=== PATIENT | male | born 1960 | race Caucasian/White ===

== ENCOUNTER 2019-09-02 11:07 | Emergency (ER) | payer BC ==
[2019-09-02 11:18] VITALS: BP 121/98; PULSE 103
[2019-09-02] MEDS ORDERED: Diphtheria,Pertussis(Acell),Tetanus Vaccine 0.5 ML Syringe IM ONE (11:36)
[2019-09-02] MEDS ORDERED: Bacitracin Oint 1 GM U/D Packet TOP ONE (11:36)
--- NOTE | 2019-09-02 11:40 | EDM.PDOC ---
ED HPI GENERAL MEDICAL PROBLEM - General Chief Complaint: Laceration Stated Complaint: LACERATION ON LEG Time Seen by Provider: 09/02/19 11:19 Source of Information: Reports: Patient History Limitations: Reports: No Limitations - History of Present Illness INITIAL COMMENTS - FREE TEXT/NARRATIVE: HISTORY AND PHYSICAL: History of present illness: Patient is a 59-year-old male who presents to the emergency room with complaints of a laceration to his right medial thigh. 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 He denies any other extremity involvement. He offers no systemic complaints. States "if my went of november I probably would have glued shut". Review of systems: As per history of present illness and below otherwise all systems reviewed and negative. Past medical history: As per history of present illness and as reviewed below otherwise noncontributory. Surgical history: As per history of present illness and as reviewed below otherwise noncontributory. Social history: See social history for further information Family history: As per history of present illness and as reviewed below otherwise noncontributory. Physical exam: General: Well-developed and well-nourished 59-year-old male. Alert and oriented. Nontoxic-appearing and in no acute distress. HEENT: Atraumatic, normocephalic, pupils equal and reactive bilaterally, negative for conjunctival pallor or scleral icterus, mucous membranes moist, TMs normal bilaterally, throat clear, neck supple, nontender, trachea midline. No drooling or trismus noted. No meningeal signs. No hot potato voice noted. Lungs: Clear to auscultation, breath sounds equal bilaterally, chest nontender. Heart: S1S2, regular rate and rhythm without overt murmur Abdomen: Soft, nondistended, nontender. Negative for masses or hepatosplenomegaly. Negative for costovertebral tenderness. Skin: 3.5cm laceration to mid thigh of right. Otherwise skin is intact, warm, dry. No lesions or rashes noted. Extremities: Atraumatic, moves all extremities per self without difficulty or deficits, negative for cords or calf pain. Neurovascular unremarkable. Neuro: Awake, alert, oriented. Cranial nerves II through XII unremarkable. Cerebellum unremarkable. Motor and sensory unremarkable throughout. Exam nonfocal. Notes: Chlorhexidine was used to wash the area. 1% lidocaine was used to anesthetize the area. Usual and customary procedures were followed for suture placement. 4 -0 nylon, #5 interrupted sutures were placed. Bacitracin nonstick dressing applied. Supportive care measures were reviewed and discussed. Voices understanding and is agreeable to plan of care. Denies any further questions or concerns at this time. Diagnostics: None Therapeutics: Lidocaine, Tdap, Bacitracin Prescription: None Impression: Laceration Plan: 1. Keep the area clean and dry. Continue to monitor for signs of infection. Sutures to be removed in 7-10 days. 2. Tylenol and/or ibuprofen as needed for pain management. 3. Please follow-up with your primary care provider in the next 1-2 days. Return to the ED as needed and as discussed. Definitive disposition and diagnosis as appropriate pending reevaluation and review of above. - Related Data Allergies Allergy/AdvReac Type Severity Reaction Status Date / Time No Known Allergies Allergy Verified 09/02/19 11:14 Home Meds: Home Meds . [No Known Home Meds] 05/28/15 [History] Past Medical History - Past Health History Medical/Surgical History: Denies Medical/Surgical History Other HEENT History: Glasses Other Musculoskeletal History: Recent right rib pain - Infectious Disease History Infectious Disease History: Reports: Chicken Pox - Past Surgical History GI Surgical History: Reports: Appendectomy Male Surgical History: Reports: Vasectomy Other Male Surgeries/Procedures: 1985 Other Musculoskeletal Surgeries/Procedures:: ingrown toenail surgery Social & Family History - Tobacco Use Smoking Status *Q: Current Every Day Smoker Years of Tobacco use: 40 Packs/Tins Daily: 1 - Caffeine Use Caffeine Use: Reports: Coffee, Soda Caffeine Use Comment: Daily - Recreational Drug Use Recreational Drug Use: No ED ROS GENERAL - Review of Systems Review Of Systems: Comprehensive ROS is negative, except as noted in HPI. ED EXAM, SKIN/RASH Exam: See Below (See dictation) ED SKIN PROCEDURES - Laceration/Wound Repair Right thigh Appearance: Subcutaneous, Linear Distal NVT: Neuro & Vascular Intact, No Tendon Injury Anesthetic Type: Local Local Anesthesia - Lidocaine (Xylocaine): 1% Plain Local Anesthetic Volume: 3cc Skin Prep: Chlorhexidine (Hibiciens), Saline, Sterile Drape Saline Irrigation (cc's): 50 Exploration/Debridement/Repair: Wound Explored, In a Bloodless Field, Explored to Base, No Foreign Material Found Closed with: Sutures Lac/Wound length In cm: 3.5 Suture Size: 4-0 # of Sutures: 5 Suture Type: Nylon, Interrupted, Simple Drain Placement: No Sterile Dressing Applied: Provider Tetanus Status Addressed: Yes Complications: No Course - Vital Signs Last Recorded V/S: Last Vital Signs Temp 97.3 F 09/02/19 11:10 Pulse 103 H 09/02/19 11:10 Resp 15 09/02/19 11:10 BP 121/98 H 09/02/19 11:10 Pulse Ox 95 09/02/19 11:10 - Orders/Labs/Meds Orders: Active Orders 24 hr Category Date Time Status Vaccines to be Administered [RC] PER UNIT ROUTINE Care 09/02/19 11:36 Active Meds: Medications Discontinued Medications Generic Name Dose Route Start Last Admin Trade Name Alfredoq PRN Reason Stop Dose Admin Bacitracin 1 dose 09/02/19 11:36 Bacitracin Oint 1 Gm TOP 09/02/19 11:37 ONETIME ONE Diphtheria/Tetanus/Acell Pertussis 0.5 ml 09/02/19 11:36 Adacel IM 09/02/19 11:37 .ONCE ONE Lidocaine HCl 5 ml 09/02/19 11:36 Xylocaine-Mpf 1% INJECT 09/02/19 11:37 ONETIME ONE Departure - Departure Time of Disposition: 11:38 Disposition: Home, Self-Care 01 Clinical Impression: Laceration - Discharge Information Instructions: Laceration Care, Adult, [id number] Referrals: Abdirashid Nobles MD [Primary Care Provider] - Forms: ED Department Discharge Additional Instructions: The following information is given to patients seen in the emergency department who are being discharged to home. This information is to outline your options for follow-up care. We provide all patients seen in our emergency department with a follow-up referral. The need for follow-up, as well as the timing and circumstances, are variable depending upon the specifics of your emergency department visit. If you don't have a primary care physician on staff, we will provide you with a referral. We always advise you to contact your personal physician following an emergency department visit to inform them of the circumstance of the visit and for follow-up with them and/or the need for any referrals to a consulting specialist. The emergency department will also refer you to a specialist when appropriate. This referral assures that you have the opportunity for follow-up care with a specialist. All of these measure are taken in an effort to provide you with optimal care, which includes your follow-up. Under all circumstances we always encourage you to contact your private physician who remains a resource for coordinating your care. When calling for follow-up care, please make the office aware that this follow-up is from your recent emergency room visit. If for any reason you are refused follow-up, please contact the [facility] Emergency Department at and asked to speak to the emergency department charge nurse. [facility] Primary Care [address] [place] [id number] [facility] [address] [place] [id number] 1. Keep the area clean and dry. Continue to monitor for signs of infection. Sutures to be removed in 7-10 days. 2. Tylenol and/or ibuprofen as needed for pain management. 3. Please follow-up with your primary care provider in the next 1-2 days. Return to the ED as needed and as discussed. Sepsis Event Note - Evaluation Sepsis Screening Result: No Definite Risk - Focused Exam Vital Signs: Vital Signs Temp Pulse Resp BP Pulse Ox 09/02/19 11:10 97.3 F 103 H 15 121/98 H 95 Date Exam was Performed: 09/02/19 Time Exam was Performed: 11:56 - My Orders Last 24 Hours: My Active Orders 09/02/19 11:36 Vaccines to be Administered [RC] PER UNIT ROUTINE - Assessment/Plan Last 24 Hours: My Active Orders 09/02/19 11:36 Vaccines to be Administered [RC] PER UNIT ROUTINE
== END 2019-09-02 12:12 | disposition home or self-care (01) ==
LOC: MW.ED 11:07
DX: S71.111A Laceration without foreign body, right thigh, initial encounter (principal); Z23 Encounter for immunization; F17.210 Nicotine dependence, cigarettes, uncomplicated; Z90.49 Acquired absence of other specified parts of digestive tract; W26.8XXA Contact with other sharp object(s), not elsewhere classified, initial encounter; Y99.0 Civilian activity done for income or pay
CPT/HCPCS: 12002; 90471; 90715; 99282; J2001

== ENCOUNTER 2021-09-09 17:12 | Emergency (ER) | payer BC, OTHER ==
[2021-09-09] MEDS ORDERED: Lidocaine 1% PF 2 ML SDV INJECT ONE (17:20)
[2021-09-09 18:29] VITALS: BP 120/78; PULSE 69
== END 2021-09-09 18:32 | disposition home or self-care (01) ==
LOC: MW.ED 17:12
DX: S01.311A Laceration without foreign body of right ear, initial encounter (principal); W26.8XXA Contact with other sharp object(s), not elsewhere classified, initial encounter
CPT/HCPCS: 12001; 12011; 99282; 99282-25